=== PATIENT | male | born 1940 | race Caucasian/White ===

== ENCOUNTER 2016-12-31 08:58 | Emergency (ER) | payer MEDICARE, MEDICAID ==
[2016-12-31 09:01] VITALS: BMI 30.3
--- NOTE | 2016-12-31 11:08 | ED PDOC ---
HPI: General Adult Time Seen by Provider: 12/31/16 10:05 Chief Complaint (Nursing): ENT Problem Chief Complaint (Provider): nosebleed History Per: Patient History/Exam Limitations: no limitations Onset/Duration Of Symptoms: Days (x3) Additional Complaint(s): Brandon Mayorga is a 76 year old male with previous medical history of hypertension and diabetes, who presents to the emergency department for an evaluation of intermittent nosebleeds ongoing for 3 days. Denied any further medical complaints. Patient stated nosebleeds lasts for a few minutes then stops on its own with last episode occurring 5 hours ago. Of note, patient reported aspirin use for cardiac problems. PMD: none provided Past Medical History Reviewed: Historical Data, Nursing Documentation, Vital Signs Vital Signs: Last Vital Signs Temp 98 F 12/31/16 15:02 Pulse 70 12/31/16 15:02 Resp 18 12/31/16 15:02 BP 128/89 12/31/16 15:02 Pulse Ox 100 12/31/16 15:02 - Medical History PMH: Benign Prostatic Hyperplasia, HTN, Hypercholesterolemia Denies: Chronic Kidney Disease - Surgical History Surgical History: Cholecystectomy - Family History Family History: States: Unknown Family Hx - Social History Current smoker - smoking cessation education provided: No Ex-Smoker (has not smoked in the last 12 months): Yes Alcohol: None Drugs: Denies - Home Medications Home Medications: Ambulatory Orders Medication Instructions Recorded Ergocalciferol (Vitamin D2) 1 cap PO QWK 08/03/15 [Vitamin D2] Glimepiride [Glimepiride] 2 mg PO DAILY 08/03/15 Losartan/Hydrochlorothiazide 1 mg PO DAILY 08/03/15 [Losartan-Hctz 100-12.5 mg Tab] Baker-3 Fatty Acids/Fish Oil 2 cap PO BID 08/03/15 [Baker 3 Fish Oil Softgel] Omeprazole [Omeprazole] 20 mg PO DAILY 08/03/15 Oxybutynin [Ditropan Tab] 5 mg PO DAILY 08/03/15 SITagliptin [Januvia] 100 mg PO DAILY 08/03/15 Tamsulosin [Flomax] 1 tab PO HS 08/03/15 Meclizine [Meclizine*] 25 mg PO TID PRN #21 tab 08/04/15 Levofloxacin [Levaquin] 500 mg PO DAILY #5 tablet 11/12/17 Sodium Chloride Nasal Hector [Parker 1 spray NS Q6 #1 bottle 12/31/16 Nasal Hector] - Allergies Allergies/Adverse Reactions: Allergies Allergy/AdvReac Type Severity Reaction Status Date / Time Penicillins Allergy RASH Verified 08/03/15 19:44 Review of Systems ROS Statement: Except As Marked, All Systems Reviewed And Found Negative Constitutional: Negative for: Fever, Chills ENT: Positive for: Nose Discharge (blood) Physical Exam - Reviewed Vital Signs Reviewed: Yes - Physical Exam Appears: Positive for: Well, Non-toxic, No Acute Distress Head Exam: Positive for: ATRAUMATIC, NORMAL INSPECTION, NORMOCEPHALIC Skin: Positive for: Normal Color, Warm, Dry Eye Exam: Positive for: Normal appearance ENT: Positive for: Normal ENT Inspection (dried blood in right nare noted). Negative for: Pharyngeal Erythema (or blood noted), Other (active bleeding) Cardiovascular/Chest: Positive for: Regular Rate, Rhythm, Chest Non Tender Respiratory: Positive for: Normal Breath Sounds. Negative for: Decreased Breath Sounds, Respiratory Distress Gastrointestinal/Abdominal: Positive for: Soft. Negative for: Tenderness Extremity: Positive for: Normal ROM Neurologic/Psych: Positive for: Alert, Oriented - Laboratory Results Result Diagrams: 12/31/16 11:09 12/31/16 11:09 - ECG O2 Sat by Pulse Oximetry: 96 (RA) Pulse Ox Interpretation: Normal Medical Decision Making Medical Decision Making: Initial Impression: Epistaxis Initial Plan: * BMP * CBC * PTT * PT Time: 1237 --Patient began bleeding from right nare in ED. --Rhinoscopy performed. No source of bleeding noted. --Nasal packing performed. See procedure note. Time: 1430 --Upon provider reevaluation, patient is feeling better, medically stable and requires no further treatment in the ED at this time. Patient will be discharged home with Rx for Levaquin 500mg and Parker Nasal Hector. Counseling was provided and all questions were answered regarding diagnosis and need for follow up with PCP. There is agreement to discharge plan. Return if symptoms persist or worsen. Clinical Impression: Epistaxis Scribe Attestation: Documented by Jennie Crouch, acting as a scribe for Jame Parker MD. Provider Scribe Attestation: All medical record entries made by the Scribe were at my direction and personally dictated by me. I have reviewed the chart and agree that the record accurately reflects my personal performance of the history, physical exam, medical decision making, and the department course for this patient. I have also personally directed, reviewed, and agree with the discharge instructions and disposition. Procedures - Time-Out Type of Procedure: nasal pack Site of Procedure: right nare Correct Patient (with visual ID + MR# on ID Band): Yes Correct Procedure: Yes Correct Site Marked: No X-Ray Marked: No Medication Reconciliation / Bloodwork / Allergies Checked: Yes Physician Name: trisha - Additional Procedures Progress: Time: 1236 --Insertion of Epistat to right nare. --Inflated Epistat with normal saline. --No complications noted. Tolerated procedure well. Disposition - Clinical Impression Clinical Impression: Epistaxis, recurrent - Patient ED Disposition Is Patient to be Admitted: No Doctor Will See Patient In The: Office Counseled Patient/Family Regarding: Studies Performed, Diagnosis, Need For Followup - Disposition Referrals: Felipe Anand MD [Staff Provider] - Disposition: Routine/Home Disposition Time: 14:30 Condition: GOOD Additional Instructions: Apply normal saline severe times per day. Take medications as instructed. Follow up with specialist in 2-3 days. Prescriptions: Levofloxacin [Levaquin] 500 mg PO DAILY #5 tablet Sodium Chloride Nasal Hector [Parker Nasal Hector] 1 spray NS Q6 #1 bottle Instructions: Nosebleed (ED) Print Language: BHUTANESE
[2016-12-31 11:14] LABS: BASO % 0.6 % (0.0-2.0); EOS # 0.1 K/uL (0.0-0.7); EOS % 0.8 % (0.0-4.0); HEMATOCRIT 43.6 % (35.0-51.0); LYMPH # 1.3 K/uL (1.0-4.3); LYMPH % 18.5 % (20.0-40.0); MEAN CORPUSCULAR HEMOGLOBIN 30.7 pg (27.0-31.0); MEAN CORPUSCULAR HGB CONC 34.1 g/dL (33.0-37.0); MEAN PLATELET VOLUME 8.9 fl (7.2-11.7); MONO # 0.8 K/uL (0.0-0.8); MONO % 11.4 % (0.0-10.0); NEUT % 68.7 % (50.0-75.0); NRBC % 0.1 % (0.0-0.0); RED CELL DISTRIBUTION WIDTH 13.8 % (11.5-14.5); WHITE BLOOD COUNT 7.2 K/uL (4.8-10.8)
[2016-12-31 11:35] LABS: BLOOD UREA NITROGEN 13 mg/dl (9-20); CALCIUM 9.3 mg/dL (8.4-10.2); CARBON DIOXIDE 27 mmol/L (22-30); CHLORIDE 108 mmol/L (98-107); GFR AFRICAN-AMERICAN > 60; GLUCOSE,RANDOM 92 mg/dL (75-110); POTASSIUM 4.3 MMOL/L (3.6-5.0); SODIUM 145 mmol/l (132-148)
[2016-12-31] MEDS ORDERED: Silver Nitrate Topical - Stick TOP ONE (12:37)
[2016-12-31] MEDS ORDERED: Silver Nitrate Topical - Stick ONE (12:42)
[2016-12-31 15:02] VITALS: BP 128/89; PULSE 70; RESP 18; TEMP 98
[2017-01-01 15:30] VITALS: O2SAT 96
== END 2016-12-31 15:02 | disposition home or self-care (01) ==
LOC: H.ER 08:58
DX: R04.0 Epistaxis (principal); E11.9 Type 2 diabetes mellitus without complications; E78.00 Pure hypercholesterolemia, unspecified; I10 Essential (primary) hypertension; N40.0 Benign prostatic hyperplasia without lower urinary tract symptoms; Z88.0 Allergy status to penicillin

== ENCOUNTER 2017-12-25 10:05 | Day surgery (SDC) | payer MEDICARE, MEDICAID ==
[2017-12-25 10:45] VITALS: BMI 29.9
[2017-12-25 11:49] LABS: INR 1.2; PROTHROMBIN TIME 13.1 Seconds (9.8-13.1)
[2017-12-25 11:50] LABS: BASO % 0.3 % (0.0-2.0); EOS # 0.1 K/uL (0.0-0.7); HEMOGLOBIN 11.2 g/dL (12.0-18.0); LYMPH % 26.4 % (20.0-40.0); MEAN CELL VOLUME 91.9 fl (80.0-94.0); MEAN CORPUSCULAR HEMOGLOBIN 29.6 pg (27.0-31.0); MEAN CORPUSCULAR HGB CONC 32.2 g/dL (33.0-37.0); MEAN PLATELET VOLUME 9.9 fl (7.2-11.7); MONO # 0.7 K/uL (0.0-0.8); MONO % 9.5 % (0.0-10.0); NEUT # 4.7 K/uL (1.8-7.0); NEUT % 62.8 % (50.0-75.0); NRBC % 0.3 % (0.0-0.0); RBC 3.79 Mil/uL (4.40-5.90); RED CELL DISTRIBUTION WIDTH 18.2 % (11.5-14.5); WHITE BLOOD COUNT 7.6 K/uL (4.8-10.8)
[2017-12-25 11:51] LABS: PARTIAL THROMBOPLASTIN TIME 29.9 Seconds (25.6-37.1)
[2017-12-25] MEDS ORDERED: Lidocaine 1% Inj (20ml) ONE (12:51)
--- NOTE | 2017-12-25 14:03 | CP.SDSHP ---
Same Day Surgery H & P - History Proposed Procedure: Paracentesis Pre-Op Diagnosis: Liver disease and ascites - Allergies Allergies: Allergies Penicillins Allergy (Verified 12/25/17 10:45) RASH - Physical Exam Vital Signs: Vital Signs 12/25/17 12/25/17 11:01 12:54 Temperature 97.9 F 97.8 F Pulse Rate 91 H 88 Respiratory 20 18 Rate Blood Pressure 141/85 134/84 O2 Sat by Pulse 92 L Oximetry Short Stay Discharge - Short Stay Discharge Admitting Diagnosis/Reason for Visit: ASCITES Disposition: HOME/ ROUTINE
--- NOTE | 2017-12-25 14:04 | PCM.SURG1 ---
Surgeon's Initial Post Op Note - Surgeon's Notes Surgeon: James Pinking Sewing Machine Operator: None Type of Anesthesia: Local Pre-Operative Diagnosis: Liver disease and ascites Operative Findings: Ascites Post-Operative Diagnosis: Liver disease and ascites Operation Performed: Paracentesis Specimen/Specimens Removed: Approx 7L of clear pale yellow fluid aspirated Estimated Blood Loss: EBL {In ML}: 1 Date of Surgery/Procedure: 12/25/17 Time of Surgery/Procedure: 13:45
[2017-12-25 14:51] VITALS: RESP 20
[2017-12-25 15:21] VITALS: TEMP 98
[2017-12-25 17:27] VITALS: BP 120/81; PULSE 69; O2SAT 95
--- NOTE | 2017-12-27 11:20 | US ---
Ultrasound guided paracentesis. Clinical History: Ascites with abdominal pain and distension. Technique: The relative risks and indications for the procedure were explained to the patient and informed written consent obtained. Sonography of the abdomen was performed in a supine position. This revealed a small amount of non-loculated ascites, greatest in the right lower quadrant. A puncture site was selected and the area was prepped and draped in the usual sterile fashion. 1% lidocaine was used to anesthetize the skin and soft tissues. A 5 Monegasque paracentesis catheter was trocared into the right lower quadrant under real time ultrasound guidance. A permanent image was stored. Approximately 7000 cc of felicia fluid aspirated. Impression: Ultrasound-guided paracentesis in the right lower quadrant. Approximately 7000 cc of felicia colored fluid was aspirated.
== END 2017-12-25 17:00 | disposition home or self-care (01) ==
LOC: H.OPSURG 10:05
PROVIDERS: ATTEND Internal Medicine Gastroenterology
DX: K76.9 Liver disease, unspecified (principal); R18.8 Other ascites; Z88.0 Allergy status to penicillin
CPT/HCPCS: 36415; 49083; 82948; 85025; 85610; 85730; C1729

== ENCOUNTER 2018-01-28 10:03 | Day surgery (SDC) | payer MEDICARE, OTHER ==
[2018-01-28 10:22] VITALS: BMI 30.9
[2018-01-28 11:30] LABS: BASO % 0.5 % (0.0-2.0); EOS # 0.1 K/uL (0.0-0.7); EOS % 1.1 % (0.0-4.0); HEMOGLOBIN 11.5 g/dL (12.0-18.0); LYMPH # 0.7 K/uL (1.0-4.3); LYMPH % 15.6 % (20.0-40.0); MEAN CELL VOLUME 92.2 fl (80.0-94.0); MEAN CORPUSCULAR HGB CONC 32.6 g/dL (33.0-37.0); MEAN PLATELET VOLUME 9.4 fl (7.2-11.7); MONO # 0.4 K/uL (0.0-0.8); MONO % 8.7 % (0.0-10.0); NEUT # 3.6 K/uL (1.8-7.0); NEUT % 74.1 % (50.0-75.0); NRBC % 0.2 % (0.0-0.0); RBC 3.84 Mil/uL (4.40-5.90); WHITE BLOOD COUNT 4.8 K/uL (4.8-10.8)
[2018-01-28 11:42] LABS: INR 1.1; PROTHROMBIN TIME 12.1 Seconds (9.8-13.1)
[2018-01-28 11:45] LABS: PARTIAL THROMBOPLASTIN TIME 31.7 Seconds (25.6-37.1)
[2018-01-28 11:54] LABS: CALCIUM 9.1 mg/dL (8.4-10.2)
[2018-01-28] MEDS ORDERED: Lidocaine 1% Inj (20ml) ONE (13:05)
--- NOTE | 2018-01-28 13:16 | CP.SDSHP ---
Same Day Surgery H & P - History Proposed Procedure: US guided paracentesis Pre-Op Diagnosis: Ascites, cirrhosis - Allergies Allergies: Allergies Penicillins Allergy (Verified 12/25/17 10:45) RASH - Physical Exam Vital Signs: Vital Signs 01/28/18 11:19 Temperature 98.4 F Pulse Rate 93 H Respiratory 20 Rate Blood Pressure 118/56 L O2 Sat by Pulse 93 L Oximetry Mental Status: Alert & Oriented x3 - {Optional Preform as Required} Abdomen: Other (very distended, non tender.) - Impression Impression: Pt with refractory ascites. Plan US guided paracentesis. Pt. Evaluated Today:Candidate for Anesthesia & Procedure: No - Date & Time Date: 01/28/18 Time: 13:00 Short Stay Discharge - Short Stay Discharge Admitting Diagnosis/Reason for Visit: ASCITES, HCC Disposition: HOME/ ROUTINE
--- NOTE | 2018-01-28 13:32 | PCM.SURG1 ---
Surgeon's Initial Post Op Note - Surgeon's Notes Surgeon: Vu Arcos MD Research Kennel Supervisor: NONE Type of Anesthesia: Local Pre-Operative Diagnosis: Ascites Operative Findings: US showed large amount of ascites Post-Operative Diagnosis: Ascites Operation Performed: US guided paracentesis Specimen/Specimens Removed: 10.4 liters of straw colored fluid Estimated Blood Loss: EBL {In ML}: 0 Blood Products Given: N/A Drains Used: No Drains Post-Op Condition: Good Date of Surgery/Procedure: 01/28/18 Time of Surgery/Procedure: 13:50
[2018-01-28 14:47] VITALS: RESP 20
[2018-01-28 15:22] VITALS: BP 103/67; PULSE 72; TEMP 97.9; O2SAT 97
--- NOTE | 2018-01-29 12:30 | US ---
Date of Procedure: 01/28/2018 PROCEDURE: Ultrasound-guided paracentesis, CPT 19077 Medications: 7 cc 1% Lidocaine HISTORY: Ascites, abdominal pain, cirrhosis TECHNIQUE: Following informed consent , the patient was placed supine on the stretcher and the site was marked. A limited abdominal ultrasound was performed that showed a large amount of intra-abdominal fluid. Procedural time out was called and the Pt's abdomen was marked and prepped and draped in the usual sterile fashion. Ultrasound-guided large volume paracentesis performed. A total of 10.4 liters of straw colored fluid was removed without complication. IMPRESSION: Ultrasound-guided large volume paracentesis.
== END 2018-01-28 15:45 | disposition home or self-care (01) ==
LOC: H.OPSURG 10:03
PROVIDERS: ATTEND Internal Medicine Gastroenterology
DX: R18.8 Other ascites (principal); K74.60 Unspecified cirrhosis of liver; Z88.0 Allergy status to penicillin
CPT/HCPCS: 36415; 49083; 80048; 82948; 85025; 85610; 85730; C1729

== ENCOUNTER 2018-02-21 10:02 | Day surgery (SDC) | payer MEDICARE, OTHER ==
[2018-02-21] MEDS ORDERED: Lidocaine 1% Inj (20ml) ONE (12:05)
--- NOTE | 2018-02-21 12:49 | CP.SDSHP ---
Same Day Surgery H & P - History Proposed Procedure: US guided paracentesis Pre-Op Diagnosis: Ascites, cirrhosis - Allergies Allergies: Allergies Penicillins Allergy (Verified 12/25/17 10:45) RASH - Physical Exam Vital Signs: Vital Signs 02/21/18 02/21/18 10:51 12:11 Temperature 98 F 97.6 F Pulse Rate 77 90 Respiratory 20 18 Rate Blood Pressure 105/69 144/73 O2 Sat by Pulse 93 L Oximetry Mental Status: Alert & Oriented x3 Neuro: WNL Heart: WNL Lungs: WNL - {Optional Preform as Required} Abdomen: Other (very distended, non tender) - Impression Impression: Pt with refractory ascites. PLan US guided paracentesis. Informed consent obtained. Pt. Evaluated Today:Candidate for Anesthesia & Procedure: No - Date & Time Date: 02/21/18 Time: 12:30 Short Stay Discharge - Short Stay Discharge Admitting Diagnosis/Reason for Visit: therapautic
[2018-02-21 13:06] VITALS: BMI 29.0
--- NOTE | 2018-02-21 13:24 | PCM.SURG1 ---
Surgeon's Initial Post Op Note - Surgeon's Notes Surgeon: Vu Arcos MD Substation Mechanic: NONE Type of Anesthesia: Local Pre-Operative Diagnosis: Ascites, cirrihosis Operative Findings: US showed large amount of ascites Post-Operative Diagnosis: Ascites, cirrhosis Operation Performed: US guided paracentesis Specimen/Specimens Removed: 9.6 liters of straw colored fluid Estimated Blood Loss: EBL {In ML}: 0 Blood Products Given: N/A Drains Used: No Drains Post-Op Condition: Fair Date of Surgery/Procedure: 02/21/18 Time of Surgery/Procedure: 13:20
[2018-02-21 14:25] VITALS: BP 106/67; PULSE 77; RESP 18; TEMP 97.6; O2SAT 99
== END 2018-02-21 14:30 | disposition home or self-care (01) ==
LOC: H.OPSURG 10:02
PROVIDERS: ATTEND Internal Medicine Gastroenterology
DX: R18.8 Other ascites (principal); K74.60 Unspecified cirrhosis of liver; Z88.0 Allergy status to penicillin
CPT/HCPCS: 49083; C1729

== ENCOUNTER 2018-03-13 09:33 | Day surgery (SDC) | payer MEDICARE, OTHER ==
[2018-03-13 10:06] VITALS: BMI 26.6
[2018-03-13] MEDS ORDERED: Lidocaine 1% Inj (20ml) ONE (12:41)
--- NOTE | 2018-03-13 13:47 | CP.SDSHP ---
Same Day Surgery H & P - History Proposed Procedure: Paracentesis Pre-Op Diagnosis: Ascites - Allergies Allergies: Allergies Penicillins Allergy (Verified 12/25/17 10:45) RASH - Physical Exam Vital Signs: Vital Signs 03/13/18 03/13/18 03/13/18 10:08 10:53 12:34 Temperature 96.7 F L 98.2 F Pulse Rate 72 72 Pulse Rate [ 72 Bilateral Radial] Respiratory 18 18 Rate Blood Pressure 108/64 137/43 L O2 Sat by Pulse 96 Oximetry Mental Status: Alert & Oriented x3 - {Optional Preform as Required} Abdomen: Other (very distended) - Impression Impression: Pt with refractory ascits. Plan US guided paracentesis. Pt. Evaluated Today:Candidate for Anesthesia & Procedure: No Short Stay Discharge - Short Stay Discharge Admitting Diagnosis/Reason for Visit: HCC, ASCITES Disposition: HOME/ ROUTINE
--- NOTE | 2018-03-13 13:48 | PCM.SURG1 ---
Surgeon's Initial Post Op Note - Surgeon's Notes Surgeon: Vu Arcos MD Leather Patcher: NONE Type of Anesthesia: Local Pre-Operative Diagnosis: Refractory ascites Operative Findings: US showed large amount of ascites Post-Operative Diagnosis: Refractory ascites Operation Performed: US guided paracentesis Specimen/Specimens Removed: 10.5 liters of straw colored fluid Estimated Blood Loss: EBL {In ML}: 0 Blood Products Given: N/A Drains Used: No Drains Post-Op Condition: Fair Date of Surgery/Procedure: 03/13/18 Time of Surgery/Procedure: 13:45
[2018-03-13 15:13] VITALS: BP 99/59; PULSE 59; RESP 20; TEMP 96; O2SAT 100
--- NOTE | 2018-03-14 12:56 | US ---
Date of Procedure: 03/13/2018 PROCEDURE: Ultrasound-guided paracentesis, CPT 60600 Medications: 7 cc 1% Lidocaine HISTORY: Ascites, abdominal pain, cirrhosis TECHNIQUE: Following informed consent , the patient was placed supine on the stretcher and the site was marked. A limited abdominal ultrasound was performed that showed a large amount of intra-abdominal fluid. Procedural time out was called and the Pt's abdomen was marked and prepped and draped in the usual sterile fashion. Ultrasound-guided large volume paracentesis performed. A total of 10.5 liters of straw colored fluid was removed without complication. IMPRESSION: Ultrasound-guided large volume paracentesis.
== END 2018-03-13 16:10 | disposition home or self-care (01) ==
LOC: H.OPSURG 09:33
PROVIDERS: ATTEND Internal Medicine Gastroenterology
DX: R18.8 Other ascites (principal)
CPT/HCPCS: 49083; 82948; C1729